=== PATIENT | female | born 1995 | race African-American/Black ===

== ENCOUNTER 2016-11-21 17:18 | Emergency (ER) | payer MEDICARE ==
[~2016-11-21] VITALS: Ht 175.3 cm; Wt 119.7 kg
[~2016-11-21 17:18] MED LIST: AMOXICILLIN500 MG ORAL; CIPRO HC OTIC S10 M1 OT; CIPRO HC OTIC S10 M1 RIGHT EAR; CIPRO500 MG PO; CLINDAMYCIN HC300 MG ORAL; CLOTRIMAZOLE15 GM TOPIC; CYCLOBENZAPRINE10 MG ORAL; DOXYCYCLINE MO100 MG ORAL; FLOXIN OTIC10 DROP OT; FLUCONAZOLE100 MG ORAL; HUMALOG KW200 UNIT/1 SQ; IBUPROFEN600 MG ORAL; LEVEMIR FL100 UNIT/1 SUBQ; NORCO 5-325 TA1 EACH ORAL
[2016-11-21 17:31] VITALS: BP 141/94
[2016-11-21 18:29] LABS: ABG ALLEN TEST POSITIVE; ABG PCO2 39.5 mmHg (35.0-45.0)
[2016-11-21 19:14] LABS: BASOPHILS % (AUTO) 1.5 % (0.0-2.0); EOSINOPHILS % (AUTO) 1.5 % (0.0-3.0); LYMPHOCYTES % (AUTO) 33.8 % (20.0-45.0); MEAN CORPUSCULAR HEMOGLOBIN 28.2 PG (27.0-31.0); MEAN CORPUSCULAR HGB CONC 33.7 G/DL (32.0-36.0); MEAN CORPUSCULAR VOLUME 84 FL (80-99); MEAN PLATELET VOLUME 7.9 FL (6.5-10.1); MONOCYTES % (AUTO) 5.2 % (1.0-10.0); PLATELET COUNT 266 K/UL (150-450); RED BLOOD COUNT 5.15 M/UL (4.20-5.40); RED CELL DISTRIBUTION WIDTH 11.3 % (11.6-14.8); WHITE BLOOD COUNT 9.6 K/UL (4.8-10.8)
[2016-11-21 19:15] VITALS: BP 138/92
[2016-11-21 19:46] LABS: APPEARANCE,URINE CLOUDY; KETONES,URINE 1+ (NEGATIVE); LEUKOCYTE ESTERASE ,URINE NEGATIVE (NEGATIVE); NITRITE,URINE NEGATIVE (NEGATIVE); PH,URINE 7 (4.5-8.0); PROTEIN,URINE 1+ (NEGATIVE); UROBILINOGEN,URINE NORMAL MG/DL (0.0-1.0)
[2016-11-21 19:51] LABS: RBC,URINE TNTC /HPF (0 - 2)
[2016-11-21 19:52] LABS: BACTERIA,URINE FEW /HPF; SQUAMOUS EPITHELIAL CELL,UR FEW /LPF (NONE/OCC); WBC,URINE 0-2 /HPF (0 - 2)
[2016-11-21 20:05] LABS: ALANINE AMINOTRANSFERASE 12 U/L (3-33); ALBUMIN/GLOBULIN RATIO 1.1 (1.0-2.7); ANION GAP 16 (5-15); ASPARTATE AMINO TRANSFERASE 33 U/L (5-40); CALCIUM 9.3 mg/dL (8.6-10.2); CARBON DIOXIDE 26 mEQ/L (20-30); CHLORIDE 89 mEQ/L (98-107); CREATININE 0.7 mg/dL (0.5-0.9); GLOMERULAR FILTRATION RATE > 60 mL/min (>60); HEMOLYSIS 194; MAGNESIUM 1.8 mg/dL (1.7-2.5); POTASSIUM 4.8 mEQ/L (3.4-4.9); SODIUM 131 mEQ/L (135-145); TOTAL PROTEIN 7.4 g/dL (6.6-8.7)
[2016-11-21] MEDS ORDERED: Levemir Flexpen SUBQ STA (20:56)
[2016-11-21] MEDS ORDERED: HUMALOG100 UNIT/1 SUBQ (20:58)
[2016-11-21] MEDS ORDERED: LEVEMIR100 UNIT/1 SUBQ (20:58)
--- NOTE | 2016-11-23 00:24 | Emergency Room Report ---
History of Present Illness General Chief Complaint: General Complaint Source: Patient Present Illness HPI 21 YOF here because "my sugar is high." Denies abd pain, nausea/vomiting, chest pain, fever/chills. Endorses polyuria, polydipsia. States ran out of Rx 2 weeks ago, cant get in to see PMD. Allergies: Coded Allergies: No Known Allergies (Unverified , 09/21/15) Patient History Past Medical History: DM Past Surgical History: none Pertinent Family History: none Social History: Denies: alcohol use, drug use, smoking Last Menstrual Period: 11/19/2016 Now: No : 0 Para: 0 Immunizations: UTD Reviewed Nursing Documentation: PMH: Agreed, PSxH: Agreed Nursing Documentation-PMH Hx Cardiac Problems: Yes Hx Hypertension: Yes Hx Diabetes: Yes Hx Neurological Problems: No Review of Systems All Other Systems: negative except mentioned in HPI Physical Exam Vital Signs Date Time Temp Pulse Resp B/P Pulse Ox O2 Delivery O2 Flow Rate FiO2 11/21/16 17:22 98.2 94 16 141/94 99 Room Air Sp02 EP Interpretation: reviewed, normal General Appearance: normal inspection, well appearing, no apparent distress, alert, GCS 15, non-toxic Head: normocephalic, atraumatic Eyes: bilateral eye EOMI, bilateral eye PERRL ENT: normal ENT inspection, hearing grossly normal, normal voice Neck: normal inspection, full range of motion, supple, no bony tend Respiratory: normal inspection, lungs clear, normal breath sounds, no respiratory distress, no retraction, no wheezing Cardiovascular #1: regular rate, rhythm, no edema Gastrointestinal: normal inspection, normal bowel sounds, non tender, soft, no guarding, no hernia Genitourinary: no CVA tenderness Musculoskeletal: normal inspection, back normal, normal range of motion, John' s Sign negative Neurologic: normal inspection, alert, oriented x3, responsive, qual field manager III-XII nml as tested, motor strength/tone normal, speech normal Psychiatric: normal inspection, judgement/insight normal, mood/affect normal Skin: normal inspection, normal color, no rash Lymphatic: normal inspection Medical Decision Making Diagnostic Impression: Primary Impression: Hyperglycemia ER Course Labs do not demonstrate DKA. Slight AG elevation. Bicarb normal. Glucose 319. No leukocytosis. UA with 1+ ketones. Negative serum ketones Gave IVF NS here Patient feels better Gave QHS dose of Lantus and Rx for both daytime and QHS insulin as specified by patient DC home Last Vital Signs Date Time Temp Pulse Resp B/P Pulse Ox O2 Delivery O2 Flow Rate FiO2 11/21/16 19:15 98.2 72 15 138/92 99 Room Air Status: improved Disposition: HOME, SELF-CARE Condition: Improved Scripts Insulin Lispro (HUMALOG) 100 Unit/1 Ml Vial 10 UNITS SUBQ TID for 30 Days, #1 UNITS 0 Refills Prov: PJ BURCH M.D. 11/21/16 Insulin Detemir (LEVEMIR) 100 Unit/1 Ml Vial 40 UNIT SUBQ BEDTIME for 30 Days, VIAL Prov: PJ BURCH M.D. 11/21/16 Referrals: NON PHYSICIAN (PCP) Additional Instructions: - Please fill prescriptions for short-acting and nightly insulin as prescribed - please follow up with a primary care doctor in 2-3 days PJ BURCH M.D. Nov 23, 2016 00:24
--- NOTE | 2016-12-11 14:22 | Cardiology Report ---
APPROVED REPORT EKG Measurement Heart [id number] Normal sinus rhythm with sinus arrhythmia Cannot rule out Anterior infarct, age undetermined Abnormal ECG
== END 2016-11-21 19:15 | disposition home or self-care (01) ==
LOC: EMR 17:55
DX: E11.65 Type 2 diabetes mellitus with hyperglycemia (principal); I10 Essential (primary) hypertension
CPT/HCPCS: 36415; 36600; 80053; 81003; 82009; 82803; 83735; 85025; 93005; 96360; 99284; S5561

== ENCOUNTER 2017-01-25 15:47 | Emergency (ER) | payer MEDICARE ==
[~2017-01-25] VITALS: Ht 172.7 cm; Wt 121.6 kg
[~2017-01-25 15:47] MED LIST changes: +HUMALOG100 UNIT/1 SUBQ; +LEVEMIR100 UNIT/1 SUBQ
[2017-01-25] MEDS ORDERED: AMOXICILLIN500 MG ORAL (16:22)
[2017-01-25] MEDS ORDERED: CORTISPORIN EAR10 ML LEFT EAR (16:22)
[2017-01-25 16:38] VITALS: BP 130/88
--- NOTE | 2017-01-25 17:44 | Emergency Room Report ---
History of Present Illness General Chief Complaint: Earache Present Illness HPI The patient is a 21-year-old female presenting for left ear pain which began 5 days prior. She was seen in the emergency department and given a prescription for Cortisporin. She has been using as prescribed but states pain has persisted. It is described as a 9/10 dull ache and does not radiate from the left ear. Pain worse with touch. She denies other symptoms including fever, chills, sore throat, headache, rash, discharge, change in hearing, dizziness Allergies: Coded Allergies: No Known Allergies (Unverified , 09/21/15) Patient History Past Medical History: see triage record Pertinent Family History: none Last Menstrual Period: 01/18/17 Now: No Reviewed Nursing Documentation: PMH: Agreed, PSxH: Agreed Nursing Documentation-PMH Past Medical History: No History, Except For Hx Cardiac Problems: Yes Hx Hypertension: Yes Hx Diabetes: Yes Hx Neurological Problems: No Review of Systems All Other Systems: negative except mentioned in HPI Physical Exam Vital Signs Date Time Temp Pulse Resp B/P Pulse Ox O2 Delivery O2 Flow Rate FiO2 01/25/17 15:57 98.1 75 16 130/88 99 Room Air Sp02 EP Interpretation: reviewed, normal General Appearance: no apparent distress, alert, GCS 15, non-toxic Head: normocephalic, atraumatic Eyes: bilateral eye PERRL, bilateral eye normal inspection ENT: normal pharynx, normal voice, uvula midline, other - L EAC edema and white DC. TM is bulging Neck: full range of motion, supple/symm/no masses Musculoskeletal: back normal, gait/station normal, normal range of motion, non- tender Neurologic: alert, oriented x3, responsive, motor strength/tone normal, sensory intact, speech normal Psychiatric: judgement/insight normal, memory normal, mood/affect normal, no suicidal/homicidal ideation Skin: normal color, no rash, warm/dry, well hydrated Lymphatic: no adenopathy Medical Decision Making PA Attestation Dr. Regalado is my supervising physician. Patient management was discussed with my supervising physician Diagnostic Impression: Primary Impression: Otitis externa Qualified Codes: H60.502 - Unspecified acute noninfective otitis externa, left ear Additional Impression: Otitis media Qualified Codes: H65.92 - Unspecified nonsuppurative otitis media, left ear ER Course The patient is a 21-year-old female presenting for left ear pain which began 5 days prior Differential diagnosis include but not limited to otitis externa, otitis media, mastoiditis, sinusitis, pharyngitis Physical exam: Vitals within normal limits. No apparent distress. HEENT: Left ear external auditory canal is erythematous and edematous. White discharge is noted. Tympanic membrane is bulging. There is cervical lymphadenopathy. Otherwise exam is unremarkable The patient will be discharged home with a prescription for Cortisporin and amoxicillin for treatment of both AOM and AOE. ER precautions given Last Vital Signs Date Time Temp Pulse Resp B/P Pulse Ox O2 Delivery O2 Flow Rate FiO2 01/25/17 16:38 98.1 71 16 130/88 99 Room Air Status: improved Disposition: HOME, SELF-CARE Condition: Improved Scripts Neomycin/Polymyxin B Sulf/Hc* (CORTISPORIN EAR SOLUTION*) 10 Ml Solution 4 DROP LEFT EAR QID, #10 ML 0 Refills Prov: STEF SANDOVAL 01/25/17 Amoxicillin* (AMOXIL*) 500 Mg Capsule 500 MG ORAL Q12HR, #20 CAP Prov: STEF SANDOVAL.A. 01/25/17 Referrals: NON PHYSICIAN (PCP) Patient Instructions: Otitis Externa, Otitis Media, Adult Additional Instructions: I discussed my findings with the patient. All questions and concerns have been answered. Treatment and medication compliance have been addressed. I advised the patient that they need to follow up with PMD in 3-5 days. Return to ED if symptoms worsen, new symptoms arise, or if needed for any reason. Patient verbalized understanding of discharge instructions. STEF SANDOVAL January 25, 2017 17:44
== END 2017-01-25 16:40 | disposition home or self-care (01) ==
LOC: EMR 16:27
DX: H60.92 Unspecified otitis externa, left ear (principal); H66.92 Otitis media, unspecified, left ear; I10 Essential (primary) hypertension; E11.9 Type 2 diabetes mellitus without complications
CPT/HCPCS: 99284

== ENCOUNTER 2017-02-01 12:57 | Emergency (ER) | payer MEDICARE ==
[~2017-02-01] VITALS: Ht 172.7 cm; Wt 119.7 kg
[~2017-02-01 12:57] MED LIST changes: +CORTISPORIN EAR10 ML LEFT EAR
[2017-02-01] MEDS ORDERED: CIPRO HC OTIC S10 M1 OT (13:30)
[2017-02-01 13:35] VITALS: BP_SYST 139; BP_DIAS 74; BP_DIAS 79
--- NOTE | 2017-02-01 16:58 | Emergency Room Report ---
History of Present Illness General Chief Complaint: Earache Source: Patient Present Illness [facility] The patient is a 21-year-old female presenting with left ear pain. The patient was seen in this emergency department for the same complaint one week prior and given a prescription for both amoxicillin and Cortisporin for otitis media and externa. She states pain has only slightly decreased and is described as a 9/ 10 dull ache to the left ear. It does not radiate. Pain worse with touch. She has noticed blood and discharge from the ear. She denies other symptoms including nausea, vomiting, fever, chills, headache, sore throat, cough Allergies: Coded Allergies: No Known Allergies (Unverified , 09/21/15) Patient History Past Medical History: see triage record Pertinent Family History: none Last Menstrual Period: 11/25/16 Now: No Reviewed Nursing Documentation: PMH: Agreed, PSxH: Agreed Nursing Documentation-PMH Past Medical History: No History, Except For Hx Cardiac Problems: Yes Hx Hypertension: Yes Hx Diabetes: Yes Hx Neurological Problems: No Review of Systems All Other Systems: negative except mentioned in HPI Physical Exam Vital Signs Date Time Temp Pulse Resp B/P Pulse Ox O2 Delivery O2 Flow Rate FiO2 02/01/17 13:04 97.9 102 16 139/79 100 Room Air Sp02 EP Interpretation: reviewed, normal General Appearance: no apparent distress, alert, GCS 15, non-toxic Head: normocephalic, atraumatic Eyes: bilateral eye PERRL, bilateral eye normal inspection ENT: hearing grossly normal, normal pharynx, no angioedema, normal voice, uvula midline, other - L EAC: diffuse white discharge. TTP over tragus. Neck: full range of motion, supple/symm/no masses Respiratory: chest non-tender, lungs clear, normal breath sounds, speaking full sentences Cardiovascular #1: regular rate, rhythm, no edema Musculoskeletal: back normal, gait/station normal, normal range of motion, non- tender Neurologic: alert, oriented x3, responsive, motor strength/tone normal, sensory intact, speech normal Psychiatric: judgement/insight normal, memory normal, mood/affect normal, no suicidal/homicidal ideation Skin: normal color, no rash, warm/dry, well hydrated Lymphatic: no adenopathy Medical Decision Making PA Attestation Dr. Diez is my supervising physician. Patient management was discussed with my supervising physician Diagnostic Impression: Primary Impression: Otitis externa Qualified Codes: H60.502 - Unspecified acute noninfective otitis externa, left ear ER Course The patient is a 21-year-old female presenting with left ear pain. Differential diagnosis include but not limited to otitis externa, otitis media, mastoiditis, sinusitis, pharyngitis Physical exam: Vitals within normal limits. No apparent distress. HEENT: Left ear external auditory canal is erythematous and edematous. White discharge is noted. Tympanic membrane is intact. No bulging. There is no cervical lymphadenopathy. Otherwise exam is unremarkable The patient will be discharged home with a prescription for cipro/ hydrocortisone ear drops. She will followup with PMD and also informed she needs to see an ear nose throat specialist as soon as possible due to Cortisporin and oral antibiotics being infected. Last Vital Signs Date Time Temp Pulse Resp B/P Pulse Ox O2 Delivery O2 Flow Rate FiO2 02/01/17 13:35 97.9 16 139/79 100 Room Air 02/01/17 13:35 66 Status: improved Disposition: HOME, SELF-CARE Condition: Improved Scripts Ciprofloxacin/Hydrocortisone (CIPRO HC OTIC SUSPENSION) 10 Ml Drops.susp 3 DROP OT BID, #10 ML Prov: STEF SANDOVAL 02/01/17 Referrals: [facility]REFERRING Patient Instructions: Otitis Externa Additional Instructions: I discussed my findings with the patient. All questions and concerns have been answered. Treatment and medication compliance have been addressed. I advised the patient that they need to follow up with PMD in 3-5 days. Return to ED if pain remains or worsens, cough worsens or remains, you notice blood in your sputum, you notice wheezing, you experience a fever, or if needed for any reason. Patient verbalized understanding of discharge instructions. The patient is given information to followup with ENT as soon as possible STEF SANDOVAL February 01, 2017 16:58
== END 2017-02-01 13:37 | disposition home or self-care (01) ==
LOC: EMR 13:20
DX: H60.502 Unspecified acute noninfective otitis externa, left ear (principal); E11.9 Type 2 diabetes mellitus without complications; I10 Essential (primary) hypertension
CPT/HCPCS: 99283

== ENCOUNTER 2017-05-03 14:23 | Emergency (ER) | payer MEDICARE, OTHER ==
[~2017-05-03] VITALS: Ht 172.7 cm; Wt 126.1 kg
[2017-05-03 14:29] VITALS: BP 136/93
[2017-05-03] MEDS ORDERED: PROAIR HFA8.5 GM INH (15:00)
[2017-05-03] MEDS ORDERED: CORTISPORIN EAR10 ML LEFT EAR (15:00)
--- NOTE | 2017-05-03 18:35 | Emergency Room Report ---
History of Present Illness General Chief Complaint: Earache Source: Patient Present Illness HPI The patient is a 22-year-old female visiting with left ear pain and a feeling of shortness of breath. She has been seen in this emergency department recently for left ear infection. She was given both oral and antibiotic drops. She states that the infection initially clear but has now returned. Pain is a 10 out of 10 dull ache it is worse with touch. She denies changes in hearing. She denies fever or chills. She started to develop a feeling of shortness of breath 3 days prior which is worse with exercise. She does admit to a childhood history of asthma. She denies any recent travel or sick contacts. She denies cough, she denies other symptoms including nasal discharge, sore throat, rash, headache, dizziness, blurred vision, chest pain Allergies: Coded Allergies: No Known Allergies (Unverified , 09/21/15) Patient History Past Medical History: see triage record Pertinent Family History: none Reviewed Nursing Documentation: PMH: Agreed, PSxH: Agreed Nursing Documentation-PMH Hx Cardiac Problems: Yes Hx Hypertension: Yes Hx Diabetes: Yes Hx Neurological Problems: No Review of Systems All Other Systems: negative except mentioned in HPI Physical Exam Vital Signs Date Time Temp Pulse Resp B/P Pulse Ox O2 Delivery O2 Flow Rate FiO2 05/03/17 14:29 97.9 96 20 136/93 100 Room Air Sp02 EP Interpretation: reviewed, normal General Appearance: no apparent distress, alert, GCS 15, non-toxic Head: normocephalic, atraumatic Eyes: bilateral eye PERRL, bilateral eye normal inspection ENT: hearing grossly normal, normal pharynx, no angioedema, normal voice, uvula midline, other - L EAC has white DC. Unable to see TM Neck: full range of motion, supple/symm/no masses Respiratory: chest non-tender, lungs clear, normal breath sounds, no accessory muscle use, no wheezing, speaking full sentences Cardiovascular #1: regular rate, rhythm, no edema Musculoskeletal: back normal, gait/station normal, normal range of motion, non- tender, calf tenderness Neurologic: alert, oriented x3, responsive, motor strength/tone normal, sensory intact, speech normal Psychiatric: judgement/insight normal, memory normal, mood/affect normal, no suicidal/homicidal ideation Skin: normal color, no rash, warm/dry, well hydrated Medical Decision Making PA Attestation Dr. Salinas is my supervising physician. Patient management was discussed with my supervising physician Diagnostic Impression: Primary Impression: Asthma Qualified Codes: J45.909 - Unspecified asthma, uncomplicated Additional Impression: Otitis externa Qualified Codes: H60.92 - Unspecified otitis externa, left ear ER Course The patient is a 22-year-old female visiting with left ear pain and a feeling of shortness of breath Differential diagnosis include but not limited to otitis externa, otitis media, mastoiditis, sinusitis, pharyngitis, asthma, bronchitis Physical exam: Vitals within normal limits. No apparent distress. HEENT: Left ear external auditory canal is erythematous and edematous. White discharge is noted. TTP. There is no cervical lymphadenopathy. Otherwise exam is unremarkable The patient will be discharged home with a prescription for Cortisporin and albuterol. ER precautions given. She was told that since she has been having recurrent otitis externa, she needs to followup with ENT Last Vital Signs Date Time Temp Pulse Resp B/P Pulse Ox O2 Delivery O2 Flow Rate FiO2 05/03/17 15:07 97 18 128/77 98 Room Air 05/03/17 14:29 97.9 Status: improved Disposition: HOME, SELF-CARE Condition: Improved Scripts Neomycin/Polymyxin B Sulf/Hc* (CORTISPORIN EAR SOLUTION*) 10 Ml Solution 4 DROP LEFT EAR QID, #10 ML 0 Refills Prov: STEF SANDOVAL P.A. 05/03/17 Albuterol Sulfate* (PROAIR HFA*) 8.5 Gm Hfa.aer.ad 2 PUFFS INH Q6H, #8.5 GM 0 Refills Prov: STEF SANDOVAL P.A. 05/03/17 Referrals: [facility],REFERRING Patient Instructions: Asthma, Adult, Otitis Externa Additional Instructions: I discussed my findings with the patient. All questions and concerns have been answered. Treatment and medication compliance have been addressed. I advised the patient that they need to follow up with PMD in 3-5 days. Return to ED if symptoms worsen, new symptoms arise, or if needed for any reason. Patient verbalized understanding of discharge instructions. STEF SANDOVAL May 03, 2017 18:35
== END 2017-05-03 15:07 | disposition home or self-care (01) ==
LOC: EMR 14:58
DX: H60.92 Unspecified otitis externa, left ear (principal); J45.909 Unspecified asthma, uncomplicated; I10 Essential (primary) hypertension; E11.9 Type 2 diabetes mellitus without complications
CPT/HCPCS: 99284

== ENCOUNTER 2017-08-16 16:59 | Emergency (ER) | payer MEDICARE, MEDICAID ==
[~2017-08-16] VITALS: Ht 170.2 cm; Wt 90.7 kg
[~2017-08-16 16:59] MED LIST changes: +PROAIR HFA8.5 GM INH
[2017-08-16 17:14] VITALS: BP 137/74
[2017-08-16] MEDS ORDERED: IBUPROFEN600 MG ORAL (17:56)
[2017-08-16] MEDS ORDERED: CORTISPORIN EAR10 ML LEFT EAR (17:56)
[2017-08-16] MEDS ORDERED: ACETAMINOPHEN-1 EAC1 ORAL (17:56)
[2017-08-16 18:20] VITALS: BP 137/74
--- NOTE | 2017-08-16 19:12 | Emergency Room Report ---
History of Present Illness General Chief Complaint: Earache Source: Patient Present Illness HPI The patient is a 22-year-old female presenting for left ear pain which began 4 days prior. She states that she has a history of frequent ear infections. She states that she has an appointment to see ENT next week. Pain is an 8/10 dull ache and does not radiate from the left ear. She does admit to decreased hearing. Pain worse with touch. She states that this feels similar to previous infections. She has used Cortisporin in the past which helps. She denies any other symptoms including fever Allergies: Coded Allergies: No Known Allergies (Unverified , 09/21/15) Patient History Past Medical History: see triage record Pertinent Family History: none Reviewed Nursing Documentation: PMH: Agreed, PSxH: Agreed Nursing Documentation-PMH Hx Cardiac Problems: Yes Hx Hypertension: Yes Hx Diabetes: Yes Hx Neurological Problems: No Review of Systems All Other Systems: negative except mentioned in HPI Physical Exam Vital Signs Date Time Temp Pulse Resp B/P (MAP) Pulse Ox O2 Delivery O2 Flow Rate FiO2 08/16/17 17:08 98.1 108 20 137/74 100 Room Air Sp02 EP Interpretation: reviewed, normal General Appearance: no apparent distress, alert, GCS 15, non-toxic Head: normocephalic, atraumatic Eyes: bilateral eye normal inspection, bilateral eye PERRL ENT: hearing grossly normal, normal pharynx, no angioedema, normal voice, uvula midline, other - L EAC has white DC. Tender Neck: full range of motion, supple/symm/no masses Respiratory: chest non-tender, lungs clear, normal breath sounds, speaking full sentences Musculoskeletal: back normal, gait/station normal, normal range of motion, non- tender Neurologic: alert, oriented x3, responsive, motor strength/tone normal, sensory intact, speech normal Psychiatric: judgement/insight normal, memory normal, mood/affect normal, no suicidal/homicidal ideation Skin: normal color, no rash, warm/dry, well hydrated Medical Decision Making PA Attestation Dr. Salinas is my supervising physician. Patient management was discussed with my supervising physician Diagnostic Impression: Primary Impression: Otitis externa Qualified Codes: H60.502 - Unspecified acute noninfective otitis externa, left ear ER Course The patient is a 22-year-old female presenting for left ear pain which began 4 days prior. Differential diagnosis include but not limited to otitis externa, otitis media, mastoiditis, sinusitis, pharyngitis Physical exam: Vitals within normal limits. No apparent distress. HEENT: Left ear external auditory canal is erythematous and edematous. White discharge is noted. Tympanic membrane is intact. No bulging. There is cervical lymphadenopathy. Otherwise exam is unremarkable The patient will be discharged home with a prescription for Cortisporin and will see ENT next week Last Vital Signs Date Time Temp Pulse Resp B/P (MAP) Pulse Ox O2 Delivery O2 Flow Rate FiO2 08/16/17 18:20 98.1 82 20 137/74 100 Room Air Status: improved Disposition: HOME, SELF-CARE Condition: Improved Scripts Neomycin/Polymyxin B Sulf/Hc* (CORTISPORIN EAR SOLUTION*) 10 Ml Solution 4 DROP LEFT EAR QID, #10 ML 0 Refills Prov: STEF SANDOVAL P.A. 08/16/17 Acetaminophen With Codeine (T#3) (TYLENOL #3 TAB*) Y Tab 1 TAB ORAL Q6HR Y for For Pain, #10 TAB Prov: TERZIANISABELY P.A. 08/16/17 Ibuprofen* (MOTRIN*) 600 Mg Tablet 600 MG ORAL Q8H Y for For Pain, #30 TAB 0 Refills Prov: TERRICHANSTEF P.A. 08/16/17 Referrals: NON PHYSICIAN (PCP) Patient Instructions: Otitis Externa Additional Instructions: I discussed my findings with the patient. All questions and concerns have been answered. Treatment and medication compliance have been addressed. I advised the patient that they need to follow up with primary doctor within one week. The patient was also informed that she should see an ear nose and throat doctor as she has frequent ear infections/pain. STEF SANDOVAL Aug 16, 2017 19:12
== END 2017-08-16 18:20 | disposition home or self-care (01) ==
LOC: EMR 17:33
DX: H60.92 Unspecified otitis externa, left ear (principal); E11.9 Type 2 diabetes mellitus without complications; I10 Essential (primary) hypertension
CPT/HCPCS: 99284

== ENCOUNTER 2018-04-16 15:51 | Emergency (ER) | payer MEDICARE, OTHER ==
[~2018-04-16] VITALS: Ht 175.3 cm; Wt 133.8 kg
[~2018-04-16 15:51] MED LIST changes: +ACETAMINOPHEN-1 EAC1 ORAL
[2018-04-16] MEDS ORDERED: Dexamethasone 4mg/ml vial IM ONE (16:45)
[2018-04-16] MEDS ORDERED: Lidocaine 2% Visc 15ml soln ORAL ONE (16:45)
[2018-04-16] MEDS ORDERED: Albuterol/Ipratropium 3ml neb HHN ONE (16:45)
--- NOTE | 2018-04-16 16:57 | Emergency Room Report ---
History of Present Illness General Chief Complaint: Sore Throat Source: Patient Present Illness HPI 23-year-old female patient presents to ER complaining of sore throat for the past week. Patient states history of similar symptoms, states that she was previously treated for sore throat by her primary care provider who gave her penicillin at which time she had an allergic reaction and discontinue the penicillin however her sore throat symptoms resolved. denies fever, cough, chest pain, vomiting. Also complaining of left ear pain during this time. Reports he year history of otitis externa, states that he has been treated multiple times, states that she uses Q-tips. Reports decreased hearing in left ear. All extremity denies tinnitus or vertigo. Also complaining of shortness of breath., States that she has a history of asthma, states that her inhaler has not helped relieve her symptoms. Reports that she was recently diagnosed. denies taking medications for relief of sore throat symptoms. Denies recent immobilization or travel. Denies fever. Denies hx of cancer or drug use. Allergies: Coded Allergies: PENICILLINS (Verified Allergy, Unknown, Itchiness, 04/16/18) Patient History Past Medical History: see triage record Last Menstrual Period: 03/15/18 Now: No Reviewed Nursing Documentation: PMH: Agreed; PSxH: Agreed Nursing Documentation-PMH Past Medical History: No History, Except For Hx Cardiac Problems: No Hx Hypertension: Yes Hx Diabetes: Yes Hx Neurological Problems: No Review of Systems All Other Systems: negative except mentioned in HPI Physical Exam Vital Signs Date Time Temp Pulse Resp B/P (MAP) Pulse Ox O2 Delivery O2 Flow Rate FiO2 04/16/18 16:17 98.2 86 16 126/75 96 Room Air 98.2 Sp02 EP Interpretation: reviewed, normal General Appearance: well appearing, no apparent distress, alert, GCS 15, non- toxic Head: normocephalic, atraumatic Eyes: bilateral eye normal inspection, bilateral eye PERRL ENT: hearing grossly normal, normal pharynx, no angioedema, normal voice, TMs + canals normal - right ear, uvula midline, moist mucus membranes, pharyngeal erythema, other - left ear: Purulent discharge noted in left ear, no pain with ear pulling; no tonsillar swelling or tonsillar exudates, uvula midline Neck: full range of motion, no bony tend Respiratory: lungs clear, normal breath sounds, no rhonchi, no respiratory distress, no accessory muscle use, speaking full sentences, wheezing, other - no stridor Cardiovascular #1: regular rate, rhythm, no edema Gastrointestinal: non tender, soft, no mass, non-distended, no guarding, no rebound Musculoskeletal: back normal, digits/nails normal, gait/station normal, normal range of motion, non-tender, no calf tenderness, John's Sign negative Neurologic: alert, oriented x3, responsive, motor strength/tone normal, sensory intact Skin: no rash Lymphatic: no adenopathy Medical Decision Making PA Attestation Dr. Salinas is my supervising Physician whom patient management has been discussed with. Diagnostic Impression: Primary Impression: Asthma Additional Impressions: Otitis externa Sore throat ER Course Pt presents to ED c/o asthma symptoms, earache and sore throat. DDX considered but are not limited to pharyngitis, laryngitis, URI, peritonsillar abscess, tonsillitis, otitis media, otitis externa, cerumen impaction, asthma. VITAL SIGNS are WNL, patient is afebrile. Ordered breathing treatment and medication. ER COURSE Ordered viscous lidocaine and Tylenol. Low suspicion for peritonsillar abscess, no neck stiffness, no hot potato voice , no stridor. no tonsillar exudates, no tonsillar swelling, mild pharyngeal erythema noted, no lymphadenopathy or fever, low suspicion for bacterial infection, likely viral cause of symptoms. Advised patient on saltwater gargles and Tylenol for pain and fever symptoms patient afebrile, denies hx of fever, no crackles, low suspicion for pneumonia, patient does not require chest x-ray at this time. Patient provided with dexamethasone. Albuterol/Atrovent breathing treatment provided. Following treatment patient states no longer having difficulty with breathing. lungs clear to auscultation, no wheezes rhonchus or rales.Patient is resting comfortably in no acute distress. Discuss asthma medication with PCP. Right ear shows purulent discharge, ear cleaned in the ER with ear lavage. Following cleaning, patient reports hearing symptoms have improved. On repeat exam, TM nonerythematous, light reflex intact, nonruptured. Ear canal erythematous and edematous, likely otitis externa. Followup with ENT at scheduled appointment. Will provide abx treatment. DISCHARGE: -Rx provided for neomycin/polymixin B ear drops -Rx given for Prednisone. -Rx provided for Albuterol MDI. -Rx provided for Tylenol At this time pt is stable for d/c to home. Patient is resting comfortably in no acute distress, nontoxic appearing, able to answer questions without difficulty. Patient to take medications as instructed Will provide with patient care instructions and any necessary prescriptions. Care plan and follow-up instructions provided. Patient instructed to follow-up with primary care provider in 3 - 5 days. Patient questions asked and answered. Patient reports understanding and agreement to treatment plan. ER precautions given. Patient instructed to return to ER immediately for any new or worsening of symptoms including but not limited to increasing SOB, persistent fever. - Please note that this Emergency Department Report was dictated using [employer] consultant technology software, occasionally this can lead to erroneous entry secondary to interpretation by the dictation equipment. Status: improved Disposition: HOME, SELF-CARE Condition: Stable Scripts Neomycin/Polymyxin B Sulf/Hc* (CORTISPORIN EAR SOLUTION*) 10 Ml Solution 4 DROP LEFT EAR QID, #10 ML 0 Refills Prov: Tree Stafford 04/16/18 Acetaminophen* (TYLENOL EXTRA STRENGTH*) 500 Mg Tablet 500 MG ORAL Q8H PRN for Prn Headache/Temp > 101, #30 TAB 0 Refills Prov: Tree Stafford 04/16/18 Albuterol Sulfate* (ALBUTEROL SULFATE MDI*) 8.5 Gm Hfa.aer.ad 2 PUFF INH Q4H, #1 INH 0 Refills Prov: Tree Stafford 04/16/18 Prednisone* (PREDNISONE*) 20 Mg Tablet 40 MG ORAL DAILY for 5 Days, #10 TAB Prov: Tree Stafford 04/16/18 Patient Instructions: Asthma, Adult, [id number], Otitis Externa, [id number] , Sore Throat Additional Instructions: Followup with primary care provider in 3 -5 days. Discuss asthma medication and referral as needed. Discuss referral to ENT for otitis externa due to recurrence of symptoms. Avoid swimming. Salt water gargles Drink plenty of water. Take medications as directed. Patient questions asked and answered. ER precautions given, patient instructed to return to ER immediately for any new or worsening of symptoms including but not limited to intractable vomiting, difficulty breathing, inability to eat. Tree Stafford Apr 16, 2018 16:57
[2018-04-16] MEDS ORDERED: TYLENOL EXTRA500 MG ORAL (17:17)
[2018-04-16] MEDS ORDERED: ALBUTEROL SULF8.5 GM INH (17:17)
[2018-04-16] MEDS ORDERED: PREDNISONE20 MG ORAL (17:17)
[2018-04-16] MEDS ORDERED: CORTISPORIN EAR10 ML LEFT EAR (17:17)
[2018-04-16 17:38] VITALS: BP 126/75
[2018-04-16 17:41] VITALS: BP 126/75
== END 2018-04-16 17:43 | disposition home or self-care (01) ==
LOC: EMR 16:35
DX: J02.9 Acute pharyngitis, unspecified (principal); J45.909 Unspecified asthma, uncomplicated; H60.92 Unspecified otitis externa, left ear; I10 Essential (primary) hypertension; E11.9 Type 2 diabetes mellitus without complications; Z88.0 Allergy status to penicillin
CPT/HCPCS: 94640; 94664; 96372; 99284; J1100; J7620

== ENCOUNTER 2018-04-24 12:48 | Emergency (ER) | payer MEDICARE, OTHER ==
[~2018-04-24] VITALS: Ht 175.3 cm; Wt 133.8 kg
[~2018-04-24 12:48] MED LIST changes: +ALBUTEROL SULF8.5 GM INH; +PREDNISONE20 MG ORAL; +TYLENOL EXTRA500 MG ORAL
[2018-04-24] MEDS ORDERED: Adenosine 6mg/2ml Inj IVP ONE (13:00)
--- NOTE | 2018-04-24 13:14 | Emergency Room Report ---
History of Present Illness General Chief Complaint: Dyspnea/Respdistress Source: Patient Present Illness HPI 23-year-old female with a history of asthma and diabetes presents with left chest and left arm tightness, shortness of breath, palpitations she reports been going on worse since last night but she's had in the past, reports that whenever she gives herself albuterol the symptoms at present. Her last albuterol puff was just prior to arrival. She reports she only takes 2 puffs at a time every few hours. She denies hemoptysis, denies fevers, denies syncope , denies leg pain, leg swelling, recent travel. Allergies: Coded Allergies: PENICILLINS (Verified Allergy, Unknown, Itchiness, 04/16/18) Patient History Past Medical History: see triage record Last Menstrual Period: 04/15/18 Now: No : 0 Para: 0 Nursing Documentation-PMH Hx Cardiac Problems: No Hx Hypertension: Yes Hx Diabetes: Yes Hx Neurological Problems: No Review of Systems All Other Systems: negative except mentioned in HPI Physical Exam Vital Signs Date Time Temp Pulse Resp B/P (MAP) Pulse Ox O2 Delivery O2 Flow Rate FiO2 04/24/18 12:52 98.1 212 25 128/86 97 Room Air 98.1 Sp02 EP Interpretation: reviewed, normal - Normal pulse ox, abnormal - Very tachycardic General Appearance: no apparent distress, alert, non-toxic Head: normocephalic Eyes: bilateral eye normal inspection, bilateral eye PERRL, bilateral eye EOMI ENT: normal ENT inspection, hearing grossly normal, normal pharynx, no angioedema, normal voice, moist mucus membranes Neck: normal inspection, full range of motion, supple, supple/symm/no masses Respiratory: chest non-tender, lungs clear, normal breath sounds, chest symmetrical, palpation of chest normal Cardiovascular #1: normal peripheral pulses, regular rate, rhythm, tachycardia Cardiovascular #2: 2+ radial (R), 2+ radial (L) Gastrointestinal: normal inspection, non tender, soft, no mass, no guarding, no rebound Rectal: deferred Genitourinary: normal inspection, no CVA tenderness Musculoskeletal: back normal, gait/station normal, normal range of motion, non- tender, no calf tenderness, John's Sign negative Neurologic: alert, responsive, 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 Her WBC has resulted thus far, and is elevated, but she has been on steroids for the past week, last dose a few days ago. She does not have any infectious symptoms other than the sore throat for which she was given steroids. Today throat exam is normal. CXR without evidence of pneumonia. Will not pursue further for source of WBC elevation. patient initially denied any urinary complaints, I doubt she has thyroid disease , as her symptoms were after giving himself albuterol inhaler puffs. She has no thyromegaly on examination, has no other signs or symptoms of thyroid disease. She was found to be incidentally, she is informed of this, and will be discharged as d-dimer labs EKG chest x-ray otherwise unremarkable.she is instructed to return of chest pain shortness of breath palpitations symptoms recurred. Otherwise she knows she is to follow-up with her doctors and outpatient next week for reevaluation. EKG Diagnostic Results EKG Time: 13:04 EP Interpretation: no st-t changes, no twi's Rate: tachycardiac Rhythm: NSR ST Segments: no acute changes ASA given to the pt in ED: Yes Rhythm Strip Diag. Results Rhythm Strip Time: 13:13 EP Interpretation: yes Rate: 118 Rhythm: NSR, no PVC's, no ectopy Chest X-Ray Diagnostic Results Chest X-Ray Diagnostic Results : # of Views/Limited/Complete: 1 View Indication: Chest Pain EP Interpretation: Yes Interpretation: no consolidation, no effusion, no pneumothorax, no acute cardiopulmonary disease Impression: No acute disease Electronically Signed by: Alexy Law MD Last Vital Signs Date Time Temp Pulse Resp B/P (MAP) Pulse Ox O2 Delivery O2 Flow Rate FiO2 04/24/18 12:52 98.1 212 25 128/86 97 Room Air 98.1 Disposition: HOME, SELF-CARE Condition: Stable ALEXY LAW M.D Apr 24, 2018 13:14
[2018-04-24 13:25] VITALS: BP 109/70
[2018-04-24 13:41] LABS: HEMATOCRIT 41.6 % (37.0-47.0); HEMOGLOBIN 13.7 G/DL (12.0-16.0); MEAN CORPUSCULAR VOLUME 83 FL (80-99); PLATELET COUNT 357 K/UL (150-450); RED BLOOD COUNT 5.04 M/UL (4.20-5.40); RED CELL DISTRIBUTION WIDTH 11.5 % (11.6-14.8); WHITE BLOOD COUNT 19.5 K/UL (4.8-10.8)
[2018-04-24 13:51] LABS: ANION GAP 9 mmol/L (5-15); BLOOD UREA NITROGEN 9 mg/dL (7-18); CALCIUM 8.8 MG/DL (8.5-10.1); CARBON DIOXIDE 27 MMOL/L (21-32); CHLORIDE 102 MMOL/L (98-107); CREATININE 0.8 MG/DL (0.55-1.30); POTASSIUM 3.2 MMOL/L (3.5-5.1); SODIUM 138 MMOL/L (136-145)
[2018-04-24 13:55] LABS: ALANINE AMINOTRANSFERASE 17 U/L (12-78); ALBUMIN 3.3 G/DL (3.4-5.0); ALBUMIN/GLOBULIN RATIO 0.8 (1.0-2.7); ALKALINE PHOSPHATASE 58 U/L (46-116); ASPARTATE AMINO TRANSFERASE 8 U/L (15-37); BILIRUBIN,TOTAL 0.5 MG/DL (0.2-1.0)
[2018-04-24] MEDS ORDERED: DOPamine 400mg/250ml 250 ML IV SCH (14:15)
--- NOTE | 2018-04-24 14:38 | Diagnostic Imaging Report ---
Indication: Shortness of breath Technique: XRAY Chest 1v Comparison: None Findings: Patient slightly rotated to the right. Heart size and mediastinal contours are within normal limits given technique. There is no focal consolidation, pneumothorax or pleural effusion. Osseous structures demonstrate no acute abnormality. Impression: No radiographic evidence of acute cardiopulmonary disease.
[2018-04-24 15:00] VITALS: BP 109/70
--- NOTE | 2018-04-27 14:28 | Cardiology Report ---
APPROVED REPORT EKG Measurement Heart [id number] Sinus tachycardia Otherwise normal ECG
== END 2018-04-24 15:00 | disposition home or self-care (01) ==
LOC: EMR 14:31
DX: R00.0 Tachycardia, unspecified (principal); R07.89 Other chest pain; R06.02 Shortness of breath; I10 Essential (primary) hypertension; E11.9 Type 2 diabetes mellitus without complications; Z33.1 Pregnant state, incidental; Z88.0 Allergy status to penicillin
CPT/HCPCS: 36415; 71045; 80053; 84484; 84703; 85007; 85025; 85379; 93005; 96361; 96374; 96375; 99284; J8499